=== PATIENT | female | born 1950 | race Caucasian/White ===

== ENCOUNTER 2017-03-10 21:15 | Emergency (ER) | payer MEDICARE, OTHER | END 2017-03-10 21:37 | disposition home or self-care (01) | LOC: BURERS 21:15 | DX: I10 Essential (primary) hypertension (principal); E11.9 Type 2 diabetes mellitus without complications; E78.5 Hyperlipidemia, unspecified; Z79.02 Long term (current) use of antithrombotics/antiplatelets; Z79.4 Long term (current) use of insulin; Z79.82 Long term (current) use of aspirin; Z79.899 Other long term (current) drug therapy; Z86.73 Personal history of transient ischemic attack (TIA), and cerebral infarction without residual deficits | CPT/HCPCS: 99283 ==

== ENCOUNTER 2020-07-07 21:30 | Emergency (ER) | payer MEDICARE ==
[~2020-07-07 21:30] MED LIST: EPINEPHrine 1 MG/ML AMP ONE; Rocuronium Bromide 10 MG/ML (10ML VIAL) ONE; Sodium Bicarb 50 MEQ/50 ML Abboject 8.4% SYRINGE ONE
[2020-07-07] MEDS ORDERED: Dextrose 50% Abboject 50 ML SYRINGE ONE (21:32)
[2020-07-07] MEDS ORDERED: Ondansetron PF 4 MG/2 ML Vial ONE (21:46)
[2020-07-07 22:05] LABS: #Basophils 0.1 thou/uL (0.0-0.2); #Lymphocytes 1.9 thou/uL (1.20-3.40); #Monocytes 0.8 thou/uL (0.11-0.59); %Basophils 0.6 % (0.0-1.0); %Eosinophils 0.1 % (0.0-10.0); %Lymphocytes 16.3 % (21.0-51.0); %Monocytes 6.7 % (0.0-10.0); %Neutrophils 76.3 % (42.0-75.0); Hemoglobin 10.5 g/dL (12.0-16.0); Mean Corpuscular HGB CONC 31.6 g/dL (32.0-36.0); Mean Corpuscular Hemoglobin 31.2 pg (27.0-31.0); Mean Corpuscular Volume 98.7 fL (78.0-98.0); Mean Platelet Volume 6.9 fL (7.4-10.4); Platelet Count 350 thou/uL (130-400); RBC Distribution Width 13.6 % (11.5-14.5); Red Blood Cell (RBC) Count 3.38 mill/uL (4.20-5.40); White Blood Cell (WBC) Count 11.8 thou/uL (4.8-10.8)
[2020-07-07] MEDS ORDERED: Fentanyl 100 MCG/2 ML VIAL ONE ×2 (22:11→23:32)
[2020-07-07 22:25] LABS: Alcohol Less than 10 mg/dL (Less than 10); Salicylate Less than 8.0 mg/dL (15.0-30.0)
[2020-07-07] MEDS ORDERED: Sodium Chloride 0.9% 100 ML ONE (22:36)
[2020-07-07] MEDS ORDERED: Cefepime 2 GM VIAL ONE (22:36)
[2020-07-07 22:41] LABS: Carbon Dioxide Less than 8 mmol/L (23-31); Chloride 96 mmol/L (98-107); Sodium 140 mmol/L (136-145)
[2020-07-07 22:43] LABS: CKMB 5.3 ng/mL (0-6.6)
[2020-07-07 22:44] LABS: ALT (SGPT) 19 U/L (8-55); AST (SGOT) 14 U/L (5-34); Albumin 3.5 g/dL (3.4-4.8); Alkaline Phosphatase 34 U/L (40-110); BUN (Urea Nitrogen) 115 mg/dL (9.8-20.1); Bilirubin, Total 0.2 mg/dL (0.2-1.2); CK (CPK) 241 U/L (29-168); Calc. Creatinine Clearance 0 mL/min (70-130); Calcium 8.7 mg/dL (7.8-10.44); Globulin 2.4 g/dL (2.4-3.5); Glucose 294 mg/dL (80-115); Lipase 105 U/L (8-78); Potassium 6.6 mmol/L (3.5-5.1); Protein, Total 5.9 g/dL (5.8-8.1)
[2020-07-07] MEDS ORDERED: Lorazepam 2 MG/ML VIAL ONE (23:00)
[2020-07-07] MEDS ORDERED: Lidocaine 2% PF 100 mg/5 ml Syringe ONE (23:15)
[2020-07-07] MEDS ORDERED: Calcium Gluc 4.6 MEQ/10 ML (100 MG/ML) ONE (23:25)
[2020-07-08] MEDS ORDERED: Magnesium 2 GM/50 ML BAG (IN WATER) ONE (00:02)
[2020-07-08] MEDS ORDERED: Norepinephrine 4 MG/4 ML VIAL ONE ×2 (00:02→00:14)
[2020-07-08 00:29] LABS: Bilirubin Negative (Negative); Blood, Urine Moderate (Negative); Clarity Slightly Cloudy (Clear); Glucose, Urine (Dipstick) Negative (Negative); Ketone, Urine 15 mg/dL (Negative); Leukocyte Negative (Negative); Nitrite Negative (Negative); Protein, Urine (Dipstick) 100 mg/dL (Neg-Trace); Urobilinogen 0.2 mg/dL (Less than 2)
[2020-07-08 00:35] LABS: SARS-CoV-2 NAA Rapid Test Not Detected (NotDetected)
[2020-07-08 00:36] LABS: Bacteria/HPF 1+ HPF (None Seen); RBC/HPF 0-3 HPF (0-3); Transitional Epithelial 0-3 HPF (None Seen); WBC/HPF 0-3 HPF (0-3)
[2020-07-08 01:06] LABS: CO2 Tension (PvCO2) 22.3 mmHg (42.0-51.0)
[2020-07-08 01:07] LABS: Base Excess-Venous -27.3 mmol/L (-2.0 to 3.0); Bicarbonate (HCO3v) 4.1 mmol/L (22.0-28.0); vO2 Saturation-calc 94.3 % (60.0-85.0)
[2020-07-08 01:08] LABS: Calcium, Ionized 0.97 mmol/L (1.15-1.33); Chloride 107 mmol/L (98-107); Hemoglobin - Calc 8.3 g/dL (12.0-16.0); Potassium 5.8 mmol/L (3.5-5.1); Sodium 137 mmol/L (138-145); T. Carbon Dioxide Less than 5.0 mmol/L (22.0-28.0)
== END 2020-07-08 00:23 | disposition short-term general hospital (02) ==
LOC: BURERS 21:30
DX: A41.9 Sepsis, unspecified organism (principal); R65.21 Severe sepsis with septic shock; N17.9 Acute kidney failure, unspecified; S30.0XXA Contusion of lower back and pelvis, initial encounter; S20.229A Contusion of unspecified back wall of thorax, initial encounter; J18.9 Pneumonia, unspecified organism; E87.5 Hyperkalemia; E11.649 Type 2 diabetes mellitus with hypoglycemia without coma; Z20.822 Contact with and (suspected) exposure to COVID-19; Z79.899 Other long term (current) drug therapy; Z79.82 Long term (current) use of aspirin; Z79.4 Long term (current) use of insulin; Z79.02 Long term (current) use of antithrombotics/antiplatelets; W18.30XA Fall on same level, unspecified, initial encounter
CPT/HCPCS: 0240U; 31500; 36415; 36416; 43752; 71045; 80053; 80307; 81003; 81015; 82330; 82550; 82553; 82803; 83605; 83690; 84443; 84484; 85025; 87040; 87086; 93005; 96374; 96375; 96376; 99292; J0171; J0692; J2001; J2060; J2405; J3010; J3475; J3490

== ENCOUNTER 2020-09-14 05:16 | Emergency (ER) | payer MEDICARE ==
[2020-09-14] MEDS ORDERED: Famotidine In NaCl 20 mg/50 ml Premix Bag ONE (05:41)
[2020-09-14] MEDS ORDERED: Ondansetron PF 4 MG/2 ML Vial ONE (05:41)
[2020-09-14 06:20] LABS: INR-International Normal Ratio 1.2; Prothrombin Time 14.7 sec (12.0-14.7)
[2020-09-14 06:21] LABS: PTT 27.2 sec (22.9-36.1)
[2020-09-14 06:30] LABS: #Basophils 0.1 thou/uL (0.0-0.2); #Eosinphils 0.2 thou/uL (0.0-0.7); #Lymphocytes 2.7 thou/uL (1.20-3.40); #Monocytes 0.7 thou/uL (0.11-0.59); #Neutrophils 6.4 thou/uL (1.40-6.50); %Basophils 1.3 % (0.0-1.0); %Eosinophils 1.9 % (0.0-10.0); %Lymphocytes 26.7 % (21.0-51.0); %Monocytes 6.6 % (0.0-10.0); %Neutrophils 63.4 % (42.0-75.0); ALT (SGPT) 7 U/L (8-55); AST (SGOT) 8 U/L (5-34); Albumin 2.9 g/dL (3.4-4.8); Alkaline Phosphatase 32 U/L (40-110); Anion Gap 16 mmol/L (10-20); BUN (Urea Nitrogen) 47 mg/dL (9.8-20.1); Bilirubin, Total 0.2 mg/dL (0.2-1.2); Calc. Creatinine Clearance 0 mL/min (70-130); Calcium 8.4 mg/dL (7.8-10.44); Carbon Dioxide 20 mmol/L (23-31); Chloride 103 mmol/L (98-107); Globulin 2.5 g/dL (2.4-3.5); Glucose 238 mg/dL (83-110); Hemoglobin 6.3 g/dL (12.0-16.0); Mean Corpuscular HGB CONC 32.3 g/dL (32.0-36.0); Mean Corpuscular Hemoglobin 30.5 pg (27.0-31.0); Mean Corpuscular Volume 94.3 fL (78.0-98.0); Mean Platelet Volume 7.4 fL (7.4-10.4); Platelet Count 325 thou/uL (130-400); Potassium 4.7 mmol/L (3.5-5.1); Protein, Total 5.4 g/dL (5.8-8.1); RBC Distribution Width 14.8 % (11.5-14.5); Red Blood Cell (RBC) Count 2.07 mill/uL (4.20-5.40); Sodium 134 mmol/L (136-145); White Blood Cell (WBC) Count 10.1 thou/uL (4.8-10.8)
[2020-09-14 09:02] LABS: Lactic Acid 1.7 mmol/L (0.5-2.2)
[2020-09-14] MEDS ORDERED: Pantoprazole 40 MG VIAL ONE ×2 (09:25→09:29)
[2020-09-14 09:28] LABS: Bilirubin Negative (Negative); Blood, Urine Negative (Negative); Clarity Clear (Clear); Glucose, Urine (Dipstick) Negative (Negative); Ketone, Urine Negative (Negative); Leukocyte Negative (Negative); Nitrite Negative (Negative); Protein, Urine (Dipstick) Negative (Neg-Trace); Specific Gravity, Urine 1.015 (1.005-1.030); Urobilinogen 0.2 mg/dL (Less than 2); pH, Urine 5.5 (5.0-9.0)
[2020-09-14 10:21] LABS: Hemoglobin 5.5 g/dL (12.0-16.0); Platelet Count 273 thou/uL (130-400)
== END 2020-09-14 11:33 | disposition short-term general hospital (02) ==
LOC: BURERS 05:16
DX: K92.2 Gastrointestinal hemorrhage, unspecified (principal); D64.9 Anemia, unspecified; Z79.899 Other long term (current) drug therapy; Z79.82 Long term (current) use of aspirin; Z79.4 Long term (current) use of insulin; E11.9 Type 2 diabetes mellitus without complications; E78.5 Hyperlipidemia, unspecified; E78.00 Pure hypercholesterolemia, unspecified; I10 Essential (primary) hypertension
CPT/HCPCS: 36430; 71045; 80053; 81003; 83605; 85014; 85018; 85025; 85049; 85610; 85730; 86850; 86900; 86901; 86920; 86922; 87040; 87086; 93005; P9016; 36415; 96365; 96375; C9113; J2405

== ENCOUNTER 2024-03-25 07:38 | Emergency (ER) | payer MEDICARE ==
[2024-03-25 08:43] LABS: INR-International Normal Ratio 0.9; Prothrombin Time 12.6 sec (12.0-14.7)
[2024-03-25 08:49] LABS: #Basophils 0.2 thou/uL (0.0-0.2); #Eosinophils 0.4 thou/uL (0.0-0.7); #Monocytes 0.6 thou/uL (0.11-0.59); #Neutrophils 3.6 thou/uL (1.40-6.50); %Basophils 2.9 % (0.0-1.0); %Eosinophils 5.4 % (0.0-10.0); %Lymphocytes 29.7 % (21.0-51.0); %Monocytes 8.6 % (0.0-10.0); %Neutrophils 53.4 % (42.0-75.0); Hematocrit 33.9 % (36.0-47.0); Hemoglobin 11.4 g/dL (12.0-16.0); Mean Corpuscular HGB CONC 33.7 g/dL (32.0-36.0); Mean Corpuscular Hemoglobin 29.1 pg (27.0-31.0); Mean Corpuscular Volume 86.5 fl (78.0-98.0); Mean Platelet Volume 7.3 fL (7.4-10.4); Platelet Count 327 10x3/uL (130-400); RBC Distribution Width 11.2 % (11.5-14.5); Red Blood Cell (RBC) Count 3.92 mill/uL (4.20-5.40); White Blood Cell (WBC) Count 6.8 10x3/uL (4.8-10.8)
[2024-03-25 08:51] LABS: ALT (SGPT) 21 U/L (8-55); AST (SGOT) 18 U/L (5-34); Albumin 3.8 g/dL (3.4-4.8); Alkaline Phosphatase 51 U/L (40-110); Anion Gap 17 mmol/L (10-20); BUN (Urea Nitrogen) 26 mg/dL (9.8-20.1); Bilirubin, Total 0.3 mg/dL (0.2-1.2); Calc. Creatinine Clearance 0 mL/min (70-130); Calcium 9.7 mg/dL (7.8-10.44); Carbon Dioxide 23 mmol/L (23-31); Chloride 102 mmol/L (98-107); Estimated GFR 42; Globulin 3.5 g/dL (2.4-3.5); Glucose 192 mg/dL (83-110); Potassium 4.8 mmol/L (3.5-5.1); Protein, Total 7.3 g/dL (5.8-8.1); Sodium 137 mmol/L (136-145)
[2024-03-25 08:52] LABS: Troponin I 0.011 ng/mL (< 0.028)
[2024-03-25 09:26] LABS: Bilirubin Negative (Negative); Blood, Urine Negative (Negative); Clarity Clear (Clear); Glucose, Urine (Dipstick) Negative (Negative); Ketone, Urine Negative (Negative); Leukocyte Negative (Negative); Nitrite Negative (Negative); Protein, Urine (Dipstick) Negative (Neg-Trace); Urobilinogen 0.2 mg/dL (Less than 2)
[2024-03-25] MEDS ORDERED: Iopamidol 370 76% 100 ML VIAL ONE (09:33)
[2024-03-25 09:35] LABS: Bacteria/HPF Rare-Few HPF (None Seen); CAUTI Indications for Culture Dysuria,urgency,freq; RBC/HPF None Seen HPF (0-3); Squamous Epithelial 0-3 HPF (0-3); WBC/HPF 0-3 HPF (0-3)
[2024-03-25 09:36] LABS: Urine Culture Reflex No No
[2024-03-25] MEDS ORDERED: Aspirin Chewable 81 MG TAB ONE (09:42)
== END 2024-03-25 12:38 | disposition short-term general hospital (02) ==
LOC: BURERS 07:38
DX: R42 Dizziness and giddiness (principal); R29.702 NIHSS score 2; E11.9 Type 2 diabetes mellitus without complications; I10 Essential (primary) hypertension; E78.00 Pure hypercholesterolemia, unspecified; Z86.73 Personal history of transient ischemic attack (TIA), and cerebral infarction without residual deficits; Z79.82 Long term (current) use of aspirin; Z79.84 Long term (current) use of oral hypoglycemic drugs; Z79.85 Long-term (current) use of injectable non-insulin antidiabetic drugs; Z79.899 Other long term (current) drug therapy
CPT/HCPCS: 70450; 70496; 70498; 80053; 81001; 84484; 85025; 85610; 93005; Q9967